=== PATIENT | male | born 1985 | race Two or more races ===

== ENCOUNTER 2024-09-13 14:57 | Outpatient (AMB) | payer MEDICAID, SELFPAY ==
[2024-09-13 15:18] VITALS: BP 100/67; PULSE 75; RESP 16; TEMP 37.1; O2SAT 98; BMI 18.8
--- NOTE | 2024-09-13 15:18 | ACNOTE_ITS ---
Vital Signs 09/13/24 15:18 Height 1.78 m Height Method Stated Weight 59.421 kg Weight Measurement Method Standing Scale BMI 18.8 BP 100/67 Blood Pressure Source Automatic Cuff Blood Pressure Location Left Upper Arm Position Sitting Respiration 16 Pulse 75 Pulse Source Monitor Temp 98.8 F Temp Source Temporal Artery Scan Pulse Oximetry (%) 98 Oxygen Delivery Method Room Air Allergies/Meds Allergies & Medications Allergies No Known Allergies Allergy (Verified 09/13/24 15:19) Medication Reconciliation No Known Home Medications 09/13/24 [History Confirmed 09/13/24] MA Intake Visit Data Collection New Patient or Established: Established Patient (seen at [facility] within 3 years) Seen by Clinical Staff ONLY (RN/MA): No Pain Present Currently: No Pain scale:: 0 Pain Scale Used: Fam-[employer]ood/[employer] Required: No PCP or OBGYN visit in last 3 months: Yes Hx Now: No Do You Feel Safe at Home: Yes Authorities Contacted: N/A Smoking Status Smoking Status: Former smoker Immunization / Flu Flu Vaccine in the Last 12 Months: No Flu Vaccine Exclusion Criteria: No Exclusion Criteria Past Medical History Past Medical History CARDIAC: Negative Cardiac Disorders or Congestive Heart Failure RESPIRATORY: Negative Chronic Obstructive Pulmonary Disease (COPD) or Asthma GENITOURINARY: Negative Renal Disease ENDOCRINE: Negative Diabetes Mellitus Type 1 or Diabetes Mellitus Type 2 HEMATOLOGIC: Negative Sickle Cell Disease Social History SMOKING STATUS: Smoking status: Former smoker ALCOHOL: Alcohol Intake: Current ALCOHOL FREQUENCY: Alcohol Intake Frequency: 3 or More Drinks per Day HOUSING: Housing: House LIVES WITH: Lives With: Family Patient Portal Questioncharlene Social History Living Situation History Housing: House Tobacco History Smoking Status: Former smoker Alcohol History Alcohol Intake: Current Alcohol Intake Frequency: 3 or More Drinks per Day Alcohol Intake Frequency Other:: every day Domestic Abuse History Do You Feel Safe at Home: Yes Review of Systems Report any current symptoms Only answer those that you have currently: Past Medical History Past Medical History Have you ever been diagnosed with any of the following: Cardiology Problems Congestive Heart Failure: No Respiratory Problems Chronic Obstructive Pulmonary Disease (COPD): No Asthma: No Genital/Urinary Problems Renal Disease: No Endocrine Problems Diabetes Mellitus Type 1: No Diabetes Mellitus Type 2: No Blood Problems Sickle Cell Disease: No History of Present Illness HPI Narrative 38 y/o male with PMH of Alcohol abuse disorder, Coccidiomycosis, and FMHx of colon cancer in his father presents to the [facility] for lab results F/U. Patient has not been having any symptoms at this time stated that he has not had bloody stools or dark stools. He did mention that he had an episode of constipation, but this rapidly resolved and he did not have any symptoms afterwards. He mentioned that he continues to work and he has been sober for 1 year now. Patient stated that he has still not gotten a call from colorectal specialist for possible colonoscopy given his family history of colon cancer in his father and his episode of rectal bleeding and anemia. No other complaints at this time. Discussed labs with patient. Will see patient back in 6 months. Review of Systems Review of Systems Narrative Review of Systems: Constitutional: Denies sweats, Denies weight loss/gain, Denies fever, Denies chills. HEENT: Denies hearing loss, Denies ear pain, Denies postnasal drip, Denies double vision, Denies blurry vision. Respiratory: Denies shortness of breath, Denies cough, Denies wheezing. Cardiovascular: Denies chest pain, Denies palpitations, Denies sudden loss of consciousness. GI: Denies blood in stool, Admits constipation, Denies abdominal pain, Denies difficulty swallowing, Denies nausea or vomit. : Denies urinary incontinence, Denies pain while urinating, Denies increased urinary frequency. MSK: Denies joint pain, Denies joint swelling, Denies numbness. Skin: Denies rash, Denies itching, Denies easy bruising. Neuro: Denies headaches, Denies dizziness, Denies seizures. Objective/Exam General General Appearance: alert, comfortable, cooperative and well developed Head Head exam: atraumatic, normocephalic and normal inspection Eye Eye exam: Present normal appearance, PERRL and EOMI ENT ENT exam: Present normal exam, normal oropharynx, mucous membranes moist and n ormal external ear exam Neck Neck exam: Present normal inspection, full ROM and trachea midline Chest Chest inspection: Present normal inspection Resp Respiratory exam: Present normal lung sounds bilaterally Card Cardiovascular exam: Present regular rate, normal rhythm and normal heart sounds Abdominal Abdominal exam: Present soft and normal bowel sounds Extremities Extremities exam: Present normal inspection and full ROM Back Back exam: Present full ROM Neuro Neurological exam: Present alert, oriented X3, CN II-XII intact and normal gait Psych Psychiatric exam: Present normal affect and normal mood Skin Skin exam: Present warm, intact and normal color Assessment & Plan Diagnosis / Problem List (1) Rectal bleed: Status: Acute Assessment & Plan: Pending appt with colorectal specialist Stable, no bleeding Plan: Will F/U in 6 months (2) Normocytic normochromic anemia: Status: Acute Assessment & Plan: Labs on 08/2024showed Hgb 13.5. Labs discussed Plan: Will see back in 6 months (3) Coccidioidomycosis: Status: Chronic Assessment & Plan: Patient finished 6 months of fluconazole, no further tx Plan: Stable (4) Alcohol use disorder: Status: Chronic Assessment & Plan: Patient has refrained from any alcohol use since August 2023, sober for 1 year now. Additional Assessment Internal Medicine Attending Note: Case discussed with and agree with note and management plan of Resident Physician as per Resident's Note above. Issues of concern for present visit are as follows: Follow-up visit. History of prior rectal bleed, normocytic normochromic anemia. Most recent labs with stable hemoglobin of 13.5. Patient has been referred to colorectal specialist for colonoscopy especially given family history of colon cancer. Patient completed 6 months of fluconazole for coccidioidomycosis. No further treatment indicated at this time. Patient has been sober for 1 year. Follow-up 6 months. Ricky Reynoso MD Physician Billing Established Patient Established Patient: E/M Level 3-CPT 07962 Office Procedures [facility] Level of Care Nursing/Assessment Patient Status: Established Patient Nursing Assessment/Reassessment: Medication Reconciliation, Update PMH in EMR and Vital Signs Coordination of Care: Complex Care and Chronic Disease 1-5, Consent,records obtained, informed consent, Education Simp Pt/Fam, Lab and Imaging orders, Results/Orders obtained and Staff clarify orders Established Patient Charge Established Patient Point Assignment: 105 Established Patient Point Charge: Level 3 (80-115)
== END 2024-09-13 15:49 | disposition home or self-care (01) ==
LOC: HODAHC 14:57
DX: Z71.2 Person consulting for explanation of examination or test findings (principal); Z80.0 Family history of malignant neoplasm of digestive organs; F10.11 Alcohol abuse, in remission; Z87.19 Personal history of other diseases of the digestive system
CPT/HCPCS: 99213; G0463

== ENCOUNTER → 2025-01-30 | Outpatient (CLI) | payer MEDICAID, SELFPAY ==
--- NOTE | 2025-01-30 14:00 | XR_ITS ---
Examination: Abdomen sonogram, complete Date and time of exam: January 30, 2025 1410 hours INDICATIONS: Elevated liver enzymes on laboratory examination performed one month ago. Technique: Multiple real-time grayscale transabdominal sonographic images of the abdomen have been obtained. Findings: Contracted gallbladder no gallstones Common bile duct 0.2 cm Pancreatic head 1.8 cm Aorta not enlarged. Liver 16.5 cm fatty infiltration Normal hepatopedal portal venous flow Patent IVC Right kidney 9.0 cm cortex 0.9 cm Left kidney 10.0 cm cortex 1.6 cm Spleen 11.4 cm IMPRESSION: Negative for cholelithiasis, negative for cholecystitis Mild hepatomegaly fatty infiltration throughout the liver
== END | disposition home or self-care (01) ==
LOC: CDIM 13:55
PROVIDERS: PCP Internal Medicine Gastroenterology; Referring Provider Internal Medicine Gastroenterology; Visit Provider Internal Medicine Gastroenterology
DX: K76.0 Fatty (change of) liver, not elsewhere classified (principal); Z80.0 Family history of malignant neoplasm of digestive organs
CPT/HCPCS: 76700